=== PATIENT | female | born 1945 | race Caucasian/White ===

== ENCOUNTER 2022-11-25 07:02 | Day surgery (SDC) | payer MEDICARE, BC ==
[2022-11-24 14:01] LABS: BASOPHILS # (AUTO) 0.1 X10'3 (0-0.2); BASOPHILS % (AUTO) 0.8 % (0-1); EOSINOPHILS % (AUTO) 0.4 % (0-6); HEMATOCRIT 41.5 % (35.0-45.0); HEMOGLOBIN 13.7 g/dl (12.0-16.0); LYMPHOCYTES # (AUTO) 1.8 X10'3 (1.1-4.8); LYMPHOCYTES % (AUTO) 22.5 % (21-51); MEAN CORPUSCULAR HGB CONC 33.1 g/dL (33.0-36.5); MEAN CORPUSCULAR VOLUME 90.5 FL (78-98); MEAN PLATELET VOLUME 7.2 FL (7.4-10.4); MONOCYTES # (AUTO) 0.6 X10'3 (0-0.9); MONOCYTES % (AUTO) 7.2 % (2-12); NEUTROPHILS # (AUTO) 5.4 X10'3 (1.8-7.7); NEUTROPHILS % (AUTO) 69.1 % (42-75); PLATELET COUNT 323 X10'3 (140-440); RED BLOOD COUNT 4.58 X10'6 (4.20-5.60); RED CELL DISTRIBUTION WIDTH 13.8 % (11.5-14.5); WHITE BLOOD COUNT 7.8 X10'3 (4.5-11.0)
[2022-11-24 14:10] LABS: ALBUMIN 3.9 G/DL (3.4-5.0); ANION GAP 9 (8-16); BLOOD UREA NITROGEN 11 MG/DL (7-18); BUN/CREATININE RATIO 13.8 (10.0-20.0); CALCIUM 9.4 MG/DL (8.5-10.1); CHLORIDE 102 MMOL/L (99-107); GLUCOSE 95 MG/DL (70-104); SODIUM 142 MMOL/L (135-145); TOTAL CARBON DIOXIDE 31.4 MMOL/L (24-32); eGFR 69 ML/MIN
[2022-11-24 14:14] LABS: PROTHROMBIN TIME 10.8 SECONDS (9.0-12.0)
[2022-11-25] VITALS (24 sets, daily range): BP systolic 95–136; BP diastolic 50–91; PULSE 38–94; RESP 11–19; TEMP 97.5; O2SAT 93–100
[~2022-11-25] VITALS: Ht 167.6 cm; Wt 86.7 kg
[2022-11-25] MEDS ORDERED: diphenhydrAMINE 25mg capsule PO ONE (07:25)
[2022-11-25] MEDS ORDERED: atropine 0.1mg/ml 10ml syringe IV ONE (07:25)
[2022-11-25] MEDS ORDERED: morphine 10mg/ml inj. IV ONE (07:25)
[2022-11-25] MEDS ORDERED: MIDAZolam 1mg/ml 10ml vial IV ONE (07:25)
[2022-11-25] MEDS ORDERED: normal saline 1000ml 1,000 ML IV SCH (07:25)
[2022-11-25] MEDS ORDERED: LORazepam 0.5 MG tablet PO ONE (07:25)
[2022-11-25] MEDS ORDERED: amiodarone 150mg/dext, iso-os 100 ML IV ONE (07:25)
[2022-11-25] MEDS ORDERED: HYDR12.55 (07:41)
[2022-11-25] MEDS ORDERED: GABA300T25 (07:41)
[2022-11-25] MEDS ORDERED: potassium Cl 20 mEq SR tablet PO STA (07:41)
[2022-11-25] MEDS ORDERED: ALBUTEROL (07:41)
[2022-11-25] MEDS ORDERED: CHOL100046 PO (07:41)
[2022-11-25] MEDS ORDERED: SOTA80TA73 (07:41)
[2022-11-25] MEDS ORDERED: ANAS1TAB10 PO (07:41)
[2022-11-25] MEDS ORDERED: FLUT1BLS13 INH (07:41)
[2022-11-25] MEDS ORDERED: APIX5TAB3 PO (07:41)
== END 2022-11-25 11:50 | disposition home or self-care (01) ==
LOC: SSTAY O 07:02
PROVIDERS: ATTEND Internal Medicine Cardiovascular Disease
DX: I48.0 Paroxysmal atrial fibrillation (principal); J44.9 Chronic obstructive pulmonary disease, unspecified; E78.5 Hyperlipidemia, unspecified; I10 Essential (primary) hypertension; G47.33 Obstructive sleep apnea (adult) (pediatric); E66.3 Overweight; Z68.27 Body mass index [BMI] 27.0-27.9, adult; F41.9 Anxiety disorder, unspecified; M81.0 Age-related osteoporosis without current pathological fracture; I35.1 Nonrheumatic aortic (valve) insufficiency; I87.2 Venous insufficiency (chronic) (peripheral); Z79.899 Other long term (current) drug therapy; Z79.01 Long term (current) use of anticoagulants; Z99.81 Dependence on supplemental oxygen; Z85.3 Personal history of malignant neoplasm of breast; Z90.710 Acquired absence of both cervix and uterus; Z98.890 Other specified postprocedural states; Z98.49 Cataract extraction status, unspecified eye; Z90.49 Acquired absence of other specified parts of digestive tract; Z87.891 Personal history of nicotine dependence
CPT/HCPCS: 36415; 80048; 85025; 85610; 92960; 93005; J0282; J0461; J2250; J2274; J7030; Q0163; A4620

== ENCOUNTER 2023-03-17 12:37 | Day surgery (SDC) | payer MEDICARE, BC ==
[2023-03-17] VITALS (8 sets, daily range): BP systolic 91–162; BP diastolic 52–89; PULSE 77–106; RESP 15–17; TEMP 98.3; O2SAT 94–96
[~2023-03-17] VITALS: Ht 175.3 cm; Wt 86.7 kg
[~2023-03-17 12:37] MED LIST: ALBUTEROL; ANAS1TAB10 PO; APIX5TAB3 PO; CHOL100046 PO; FLUT1BLS13 INH; GABA300T25; HYDR12.55; SOTA80TA73 PO
[2023-03-17] MEDS ORDERED: cefazolin 2gm/D5W 100mL 100 ML IV ONE (12:55)
[2023-03-17] MEDS ORDERED: FLUT1DIS20 INH (13:16)
[2023-03-17] MEDS ORDERED: GABA300C PO (13:16)
[2023-03-17] MEDS ORDERED: ACET-2971 PO (13:16)
[2023-03-17] MEDS ORDERED: HYDR12.55 PO (13:16)
[2023-03-17 13:54] LABS: BASOPHILS # (AUTO) 0.1 X10'3 (0-0.2); EOSINOPHILS % (AUTO) 0.4 % (0-6); HEMATOCRIT 38.9 % (35.0-45.0); LYMPHOCYTES % (AUTO) 28.3 % (21-51); MEAN CORPUSCULAR HGB CONC 33.4 g/dL (33.0-36.5); MEAN PLATELET VOLUME 7.3 FL (7.4-10.4); MONOCYTES # (AUTO) 0.5 X10'3 (0-0.9); MONOCYTES % (AUTO) 6.5 % (2-12); NEUTROPHILS # (AUTO) 4.6 X10'3 (1.8-7.7); NEUTROPHILS % (AUTO) 63.8 % (42-75); PLATELET COUNT 306 X10'3 (140-440); RED BLOOD COUNT 4.18 X10'6 (4.20-5.60); RED CELL DISTRIBUTION WIDTH 13.2 % (11.5-14.5); WHITE BLOOD COUNT 7.2 X10'3 (4.5-11.0)
[2023-03-17 13:55] LABS: PROTHROMBIN TIME 10.6 SECONDS (9.0-12.0)
[2023-03-17 13:56] LABS: ALBUMIN 3.9 G/DL (3.4-5.0); ANION GAP 10 (8-16); BLOOD UREA NITROGEN 13 MG/DL (7-18); BUN/CREATININE RATIO 17.8 (10.0-20.0); CALCIUM 9.1 MG/DL (8.5-10.1); CHLORIDE 102 MMOL/L (99-107); CREATININE 0.73 MG/DL (0.40-0.90); GLUCOSE 93 MG/DL (70-104); POTASSIUM 3.2 MMOL/L (3.5-5.1); SODIUM 142 MMOL/L (135-145); TOTAL CARBON DIOXIDE 30.3 MMOL/L (24-32); eCRCL 66 ML/MIN; eGFR 77 ML/MIN
[2023-03-17] MEDS ORDERED: normal saline 1000ml 1,000 ML IV SCH ×2 (14:10→17:20)
[2023-03-17] MEDS ORDERED: potassium Cl 20 mEq SR tablet PO STA (14:11)
[2023-03-17] MEDS ORDERED: ceFAZolin 1000mg inj ONE (15:04)
[2023-03-17] MEDS ORDERED: midazolam 1 mg/ML 2ml injection ONE ×2 (15:04→15:43)
[2023-03-17] MEDS ORDERED: LIDOcaine 1% W/epiNEPHrine 1:100,000 20ml vial ONE (15:04)
[2023-03-17] MEDS ORDERED: fentaNYL/PF 50MCG/1 ML 2ML syringe ONE (15:04)
[2023-03-17] MEDS ORDERED: diphenhydrAMINE 50 mg/ml inj ONE (15:34)
[2023-03-17] MEDS ORDERED: metoprolol tartrate 1mg/ml inj IV ONE ×2 (15:51→16:10)
[2023-03-17] MEDS ORDERED: vancomycin/NS 1 GM ADD-VANTAGE 250 ML IV ONE (17:20)
[2023-03-17] MEDS ORDERED: HYDROcodone/acetaminophen 5mg/325mg tablet PO PRN (17:20)
[2023-03-17] MEDS ORDERED: HYDROcodone/acetaminophen 10/325mg tab PO PRN (17:20)
== END 2023-03-17 20:15 | disposition home or self-care (01) ==
LOC: SSTAY O 12:37
PROVIDERS: ATTEND Internal Medicine Cardiovascular Disease
DX: I49.5 Sick sinus syndrome (principal); I10 Essential (primary) hypertension; F41.9 Anxiety disorder, unspecified; J44.9 Chronic obstructive pulmonary disease, unspecified; E78.5 Hyperlipidemia, unspecified; M81.0 Age-related osteoporosis without current pathological fracture; E66.3 Overweight; Z68.28 Body mass index [BMI] 28.0-28.9, adult; I48.0 Paroxysmal atrial fibrillation; I35.1 Nonrheumatic aortic (valve) insufficiency; I87.2 Venous insufficiency (chronic) (peripheral); G47.39 Other sleep apnea; Z79.01 Long term (current) use of anticoagulants; Z79.899 Other long term (current) drug therapy; Z85.3 Personal history of malignant neoplasm of breast; Z90.49 Acquired absence of other specified parts of digestive tract; Z98.890 Other specified postprocedural states; Z90.710 Acquired absence of both cervix and uterus; Z87.891 Personal history of nicotine dependence
CPT/HCPCS: 33208; 36415; 71046; 80048; 85025; 85610; 93005; 99152; 99153; C1785; C1898; J0690; J1200; J2250; J3010; J3370; J3490; J7030; 96360; A4565; A4620; A6449